=== PATIENT | male | born 1940 | race Caucasian/White ===

== ENCOUNTER 2016-12-20 09:59 | Emergency (ER) | payer MEDICARE ==
--- NOTE | 2016-12-20 10:26 | EDM.PDOC ---
ED HPI GENERAL MEDICAL PROBLEM - General Chief Complaint: Respiratory Problem Stated Complaint: CHEST CONJESTION Time Seen by Provider: 12/20/16 10:10 Source of Information: Reports: Patient, RN, RN Notes Reviewed History Limitations: Reports: No Limitations - History of Present Illness INITIAL COMMENTS - FREE TEXT/NARRATIVE: Pt presents to the ER with c/o sob, increased sinus congestion, productive cough , sore throat. Patient denies chest pain, fever, chills, N/V/D. He states he has had trouble with his breathing for the past few years. He uses a nebulizer 4 times a day and oxygen at night. He states the present symptoms began 3-4 days ago. Onset: Gradual - Related Data Allergies Allergy/AdvReac Type Severity Reaction Status Date / Time No Known Allergies Allergy Verified 12/20/16 10:04 Home Meds: Home Meds Rosuvastatin [Crestor] 10 mg PO DAILY 04/12/14 [History] Valsartan [Diovan] 40 mg PO DAILY 04/12/14 [History] Albuterol [Proventil Neb Soln] 1 dose INH ASDIRECTED PRN 12/20/16 [History] Albuterol/Ipratropium [Combivent Respimat] 1 puff INH ASDIRECTED PRN 12/20/16 [ History] Fluticasone/Vilanterol [Breo Ellipta 100-25 MCG Inhalation Kit] 1 puff INH DAILY 12/20/16 [History] Montelukast [Singulair] 1 tab PO DAILY 12/20/16 [History] Tamsulosin [Flomax] 0.4 mg PO ONETIME 12/20/16 [History] Umeclidinium [place] [Incruse Ellipta*] 1 puff INH DAILY 12/20/16 [History] Social & Family History - Tobacco Use Smoking Status *Q: Current Every Day Smoker Years of Tobacco use: 50 Second Hand Smoke Exposure: Yes - Alcohol Use Days Per Week of Alcohol Use: 1 - Recreational Drug Use Recreational Drug Use: No - Living Situation & Occupation Occupation: Retired ED ROS GENERAL - Review of Systems Review Of Systems: ROS reveals no pertinent complaints other than HPI. ED EXAM, GENERAL - Physical Exam Exam: See Below Exam Limited By: No Limitations General Appearance: Alert, WD/WN, No Apparent Distress Eye Exam: Bilateral Eye: Normal Inspection Ears: Normal External Exam, Hearing Grossly Normal Nose: Normal Inspection Throat/Mouth: Normal Inspection, Normal Lips, Normal Teeth, Normal Gums, Normal Oropharynx, No Airway Compromise. No: Normal Voice (Raspy) Head: Atraumatic, Normocephalic Neck: Normal Inspection, Supple, Non-Tender, Full Range of Motion Respiratory/Chest: No Respiratory Distress, No Accessory Muscle Use, Chest Non- Tender, Decreased Breath Sounds, Prolonged Expiration Cardiovascular: Normal Peripheral Pulses, Regular Rate, Rhythm, No Edema, No Gallop, No JVD, No Murmur, No Rub Peripheral Pulses: 2+: Radial (L), Radial (R) GI/Abdominal: Normal Bowel Sounds, Soft, Non-Tender, No Organomegaly, No Distention, No Abnormal Bruit, No Mass (Male) Exam: Deferred Rectal (Males) Exam: Deferred Back Exam: Normal Inspection, Full Range of Motion Extremities: Normal Inspection, Normal Range of Motion, Non-Tender, No Pedal Edema, Normal Capillary Refill Neurological: Alert, Oriented, Normal Cognition, Normal Gait, No Motor/Sensory Deficits Psychiatric: Normal Affect, Normal Mood Skin Exam: Warm, Dry, Intact, No Rash (face/cheeks), Erythema Lymphatic: No Adenopathy Course - Vital Signs Last Recorded V/S: Last Vital Signs Temp 98 F 12/20/16 10:00 Pulse 90 12/20/16 10:00 Resp 22 H 12/20/16 10:00 BP 144/69 H 12/20/16 10:00 Pulse Ox 93 L 12/20/16 10:00 - Orders/Labs/Meds Orders: Active Orders 24 hr Category Date Time Status Chest 2V [CR] Urgent Exams 12/20/16 10:08 Taken cefTRIAXone [Rocephin] 1 gm Med 12/20/16 11:04 Ordered Sodium Chloride 0.9% [Normal Saline] 50 ml IV ONETIME Labs: Laboratory Tests 12/20/16 12/20/16 Range/Units 10:17 10:17 WBC 9.8 (5.0-10.0) 10^3/uL RBC 5.48 (4.6-6.2) 10^6/uL Hgb 16.8 (14.0-18.0) g/dL Hct 49.6 (40.0-54.0) % MCV 90.5 (80-100) fL MCH 30.7 (27.0-34.0) pg MCHC 33.9 (33.0-35.0) g/dL Plt Count 163 D (150-450) 10^3/uL Neut % (Auto) 61.6 (42.2-75.2) % Lymph % (Auto) 24.8 (20.5-50.1) % [place] % (Auto) 6.7 (2-8) % Eos % (Auto) 6.4 H (1.0-3.0) % Baso % (Auto) 0.5 (0.0-1.0) % Sodium 138 (135-145) mmol/L Potassium 3.9 (3.6-5.0) mmol/L Chloride 105 (101-111) mmol/L Carbon Dioxide 21.0 (21.0-31.0) mmol/L Anion Gap 15.9 BUN 19 H (7-18) mg/dL Creatinine 1.0 (0.6-1.3) mg/dL Est Cr Clr Drug Dosing 65.90 mL/min Estimated GFR (MDRD) > 60 BUN/Creatinine Ratio 19.00 Glucose 127 H (74-105) mg/dL Calcium 9.7 (8.4-10.2) mg/dl Total Bilirubin 0.9 (0.2-1.0) mg/dL AST 31 (10-42) IU/L ALT 28 (10-60) IU/L Alkaline Phosphatase 58 (42-121) IU/L Total Protein 6.8 (6.7-8.2) g/dl Albumin 4.0 (3.2-5.5) g/dl Globulin 2.8 Albumin/Globulin Ratio 1.43 Meds: Medications Discontinued Medications Generic Name Dose Route Start Last Admin Trade Name Freq PRN Reason Stop Dose Admin Methylprednisolone Sodium Succinate 125 mg 12/20/16 11:02 Solu-Medrol IVPUSH 12/20/16 11:03 ONETIME ONE - Radiology Interpretation Free Text/Narrative:: chest xray: No acute findings, COPD See rad report Departure - Departure Time of Disposition: 11:04 Disposition: Home, Self-Care 01 Condition: Fair Clinical Impression: COPD with exacerbation, Acute exacerbation of chronic obstructive airways disease - Discharge Information Instructions: Shortness of Breath, [id number], Upper Respiratory Infection, Adult, [id number], Chronic Obstructive Pulmonary Disease Exacerbation, Easy-to -Read Forms: ED Department Discharge Additional Instructions: Azithromycin 250mg, 2 tabs orally once today. Azithromycin 250mg, 1 tab orally for 4 days. Prednisone 60mg orally once daily beginning tomorrow (12/21) Follow up with your primary care facility. - My Orders Last 24 Hours: My Active Orders 12/20/16 10:08 Chest 2V [CR] Urgent 12/20/16 11:04 cefTRIAXone [Rocephin] 1 gm Sodium Chloride 0.9% [Normal Saline] 50 ml IV ONETIME - Assessment/Plan Last 24 Hours: My Active Orders 12/20/16 10:08 Chest 2V [CR] Urgent 12/20/16 11:04 cefTRIAXone [Rocephin] 1 gm Sodium Chloride 0.9% [Normal Saline] 50 ml IV ONETIME
[2016-12-20 10:31] VITALS: BP 144/69
[2016-12-20 10:42] LABS: CHLORIDE,CL 105 mmol/L (101-111); SODIUM,NA 138 mmol/L (135-145)
[2016-12-20] MEDS ORDERED: methylPREDNISolone Sodium Succinate 125 MG/2 ML SDV IVPUSH ONE (11:02)
[2016-12-20] MEDS ORDERED: cefTRIAXone 1 GM in Sodium Chloride 0.9% 50 ML IV ONE (11:04)
== END 2016-12-20 11:58 | disposition home or self-care (01) ==
LOC: DL.ED 09:59
DX: J44.1 Chronic obstructive pulmonary disease with (acute) exacerbation (principal); F17.200 Nicotine dependence, unspecified, uncomplicated; Z79.899 Other long term (current) drug therapy
CPT/HCPCS: 36415; 71020; 80053; 85025; 96365; 96375; 99285; J0696; J2930; J7050; 99284